=== PATIENT | female | born 1985 | race Caucasian/White ===

== ENCOUNTER 2020-11-08 11:23 | Emergency (ER) | payer MEDICAID ==
--- NOTE | 2020-11-08 11:54 | NUR ---
PT PRESENTS TO ED WITH C/O LOWER BACK PAIN AND L FOOT NUMBNESS/TINGLING. PT STATES THEY HAD A BACK INJURY THAT KEEPS FLARING UP, HAS BEEN IN PT AND NOW TOES ARE INTERMITTENTLY NUMB. PT STATES STARTED THIS MORNING. NUMBNESS ON L FOOT ONLY, IN TOES AND ON OUTER SIDE OF FOOT. PT A&O, RESPS EVEN AND UNLABORED, VSS, NADN. CMS INTACT, CAP REFILL <3 SECONDS, 2+ PEDAL PULSES FELT BILATERALLY. CALL LIGHT IN REACH.
--- NOTE | 2020-11-08 12:17 | NUR ---
KATARINA DUNN AT BEDSIDE FOR EVAL
[2020-11-08] MEDS ORDERED: METHOCARBAMOL 750 MG TABLET ONE (12:29)
[2020-11-08] MEDS ORDERED: KETOROLAC 30 MG/1 ML IM ONE (12:30)
[2020-11-08] MEDS ORDERED: KETOROLAC 60 MG/2 ML ONE (12:30)
[2020-11-08] MEDS ORDERED: METHOCARBAMOL 750 MG TABLET PO ONE (12:30)
[2020-11-08 12:45] VITALS: BP 139/64
--- NOTE | 2020-11-08 12:45 | NUR ---
PT MEDICATED PER ORDER, TOLERATED WELL. PT A&O, RESPS EVEN AND UNLABORED, VSS, NADN. PT STATES CURRENT PAIN 12/03
--- NOTE | 2020-11-08 13:08 | NUR ---
TASK RN: PT IN IMAGING.
--- NOTE | 2020-11-08 14:01 | NUR ---
PT A&O, RESPS EVEN AND UNLABORED, NADN. DISCHARGE INSTRUCTIONS REVIEWED, PT EDUCATED ON PRESCRIPTION, FOLLOW-UP, AND RETURN CRITERIA, VERBALIZED UNDERSTANDING. PT TO DISCHARGE DESK ACCOMPANIED BY FRIEND, NO COMPLAINT AT TIME OF DISCHARGE.
== END 2020-11-08 14:04 | disposition home or self-care (01) ==
LOC: ED 13:40
DX: S39.012A Strain of muscle, fascia and tendon of lower back, initial encounter (principal); M54.42 Lumbago with sciatica, left side; X58.XXXA Exposure to other specified factors, initial encounter; Y93.89 Activity, other specified; Y92.89 Other specified places as the place of occurrence of the external cause; Y99.8 Other external cause status
CPT/HCPCS: 72110; 96372; 99283; J1885; J7512